=== PATIENT | male | born 2000 | race Caucasian/White ===

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

== ENCOUNTER 2021-09-01 19:22 | Emergency (ER) | payer SELFPAY ==
[~2021-09-01] VITALS: Ht 190.5 cm; Wt 85.9 kg
[~2021-09-01 19:22] MED LIST: VYVANSE10 MG
[2021-09-01 21:25] VITALS: BP 124/68
== END 2021-09-01 21:25 | disposition home or self-care (01) ==
LOC: ED 19:22
DX: S61.411A Laceration without foreign body of right hand, initial encounter (principal); Z23 Encounter for immunization; W26.8XXA Contact with other sharp object(s), not elsewhere classified, initial encounter; Y92.009 Unspecified place in unspecified non-institutional (private) residence as the place of occurrence of the external cause
CPT/HCPCS: 90715